=== PATIENT | male | born 1970 | race African-American/Black ===

== ENCOUNTER 2022-10-30 08:22 | Day surgery (SDC) | payer OTHER ==
[2022-10-28 13:13] VITALS: BMI 26.2
[2022-10-30] MEDS ORDERED: PROPOFOL 20 ML ONE ×3 (10:23→11:11)
[2022-10-30] MEDS ORDERED: BUPIVACAINE HCL/PF 0.5% (5MG/ML) 10 ML VIAL ONE (10:31)
[2022-10-30] MEDS ORDERED: LIDOCAINE HCL 1%, 10 MG/ML (20ML VIAL) ONE (10:31)
[2022-10-30] MEDS ORDERED: CLINDAMYCIN 600MG PREMIX IVPB 600 MG/50 ML BAG IVPB ONE ×2 (10:47→10:48)
[2022-10-30 11:47] VITALS: RESP 18; TEMP 97.4
[2022-10-30 12:13] VITALS: BP 138/88; PULSE 60
== END 2022-10-30 12:25 | disposition home or self-care (01) ==
LOC: FASU 08:22
PROVIDERS: ATTEND Orthopaedic Surgery
PROC: 0JCJ0ZZ Extirpation of Matter from Right Hand Subcutaneous Tissue and Fascia, Open Approach (ICD-10-PCS; principal; 2022-10-30 10:59)
DX: M79.5 Residual foreign body in soft tissue (principal)
CPT/HCPCS: 88304-TC